=== PATIENT | female | born 1985 | race African-American/Black ===

== ENCOUNTER 2017-10-25 12:30 | Observation (INO) ==
[2017-10-25] MEDS ORDERED: methylPREDNISolone SOD SUC 125 MG/2 ML VIAL IV ONE (13:49)
[2017-10-25] MEDS ORDERED: MULTIVITAMIN INJ 10 ML in SODIUM CHLORIDE 0.9% 1,000 ML IV SCH (14:00)
[2017-10-25] MEDS: DEXTROSE 5% LACTATED RINGERS 1,000 ML IV SCH ×2 (14:05→23:51)
[2017-10-25 14:25] LABS: Basophils % 0.3 % (0.0-0.8); Eosinophils % 0.2 % (0.00-10.9); Hematocrit 33.8 VOL% (35.7-47.0); Immature Granulocytes % 0.5 %; Immature Granulocytes Absolute 0.05 #; Lymphocytes # 1.7 10*3/uL (1.4-4.0); Lymphocytes % 15.7 % (21.3-54.2); Mean Corpuscular HGB Conc 32.5 GM/DL (32-36); Mean Corpuscular Hemoglobin 26 PG (27-34); Mean Corpuscular Volume 81.1 FL (87-102); Monocytes # 0.8 10*3/uL (0.11-0.8); Monocytes % 7.6 % (1.7-12.7); Neutrophils % 75.7 % (38.7-73.9); Platelet Count 268 T/CUMM (130-400); Red Blood Count 4.17 MC/CUMM (3.8-5.5); Red Cell Distribution Width 15.8 % (9.3-17.3); White Blood Count 10.6 T/CUMM (4-12)
[2017-10-25 14:34] LABS: Apearance,Urine Slightly Hazy (Clear); Bacteria,Urine Occasional /HPF (Few); Bilirubin,Urine Negative (Negative); Blood, Urine Small mg/dL (Negative); Glucose,Urine (UA) Negative (Negative); Ketones,Urine 20 mg/dL (Negative); Mucus,Urine Many /LPF (Occasional); Nitrite,Urine Negative (Negative); Protein,Urine 100 MG/DL; RBC,Urine 7 /HPF (0-4); Squamous Epithelial Cell,Urine Occasional /HPF (0-10); Urine Color Yellow (Yellow); Urine Specific Gravity 1.023 (1.001-1.035); WBC,Urine 2 /HPF (0-6)
[2017-10-25 14:49] LABS: Albumin 4.1 G/DL (3.4-5.0); Bilirubin,Total 0.6 MG/DL (0.2-1.0); Calcium 9.2 MG/DL (8.5-10.1); Osmolality,Calculated 270.1 MOS/KG (273-304); Potassium 3.4 MMOL/L (3.5-5.1); Total Protein 8.1 G/DL (6.4-8.3)
[2017-10-25] MEDS: ONDANSETRON ODT 4 MG TABLET PO SCH ×2 (15:35→19:23)
[2017-10-25] MEDS: PROMETHAZINE 25 MG/1 ML VIAL IM PRN (20:52)
[2017-10-26] MEDS: ONDANSETRON ODT 4 MG TABLET PO SCH ×4 (01:55→20:58)
[2017-10-26] MEDS: PROMETHAZINE 25 MG/1 ML VIAL IM PRN (06:58)
[2017-10-26] MEDS ORDERED: PROMETHAZINE 25 MG TABLET PO PRN (09:03)
[2017-10-26] MEDS ORDERED: METOCLOPRAMIDE 10 MG/2 ML VIAL IV SCH (12:00)
[2017-10-26] MEDS: DEXTROSE 5% LACTATED RINGERS 1,000 ML IV SCH ×2 (12:17→20:59)
[2017-10-26] MEDS: METOCLOPRAMIDE 10 MG/2 ML VIAL IV SCH (17:47)
[2017-10-26] MEDS ORDERED: DOCUSATE SODIUM 100 MG CAPSULE PO PRN (19:19)
[2017-10-27] MEDS: ONDANSETRON ODT 4 MG TABLET PO SCH ×2 (02:03→07:55)
[2017-10-27] MEDS ORDERED: ALUMINUM/MAGNES/SIMETH MAX STR 30 ML UDCUP PO PRN (03:24)
[2017-10-27] MEDS: DEXTROSE 5% LACTATED RINGERS 1,000 ML IV SCH (07:09)
[2017-10-27 07:23] VITALS: BP 117/69
[2017-10-27] MEDS: METOCLOPRAMIDE 10 MG/2 ML VIAL IV SCH (07:55)
== END 2017-10-27 09:15 | disposition home or self-care (01) ==
LOC: INTOOBSV 13:15 → N.OB 13:15
PROVIDERS: ADMIT Obstetrics & Gynecology; ATTEND Obstetrics & Gynecology

== ENCOUNTER 2018-06-08 14:46 | Inpatient (IN) ==
[2018-06-08] MEDS ORDERED: LACTATED RINGERS 500 ML IV PRN (15:14)
[2018-06-08] MEDS ORDERED: LACTATED RINGERS 250 ML IV ONE (15:14)
[2018-06-08] MEDS ORDERED: ONDANSETRON 4 MG/2 ML VIAL IV PRN ×2 (15:14→20:03)
[2018-06-08] MEDS ORDERED: ceFAZolin 2,000 MG in PREMIX 1 EACH IV ONE (15:18)
[2018-06-08] MEDS ORDERED: FAMOTIDINE 20 MG/2 ML VIAL IV ONE (15:18)
[2018-06-08] MEDS ORDERED: CITRIC ACID/SODIUM CITRATE 30 ML UDCUP PO ONE (15:18)
[2018-06-08] MEDS ORDERED: OXYTOCIN/LR 20 UNIT/1,000 ML BAG IV ONE ×2 (15:21→20:03)
[2018-06-08] MEDS: LACTATED RINGERS 1,000 ML IV SCH ×3 (15:38→19:48)
[2018-06-08 16:08] LABS: Basophils # 0.1 10*3/uL (0.0-0.2); Basophils % 0.4 % (0.0-0.8); Eosinophils # 0.1 10*3/uL (0.0-0.87); Eosinophils % 0.6 % (0.00-10.9); Hematocrit 32.5 VOL% (35.7-47.0); Hemoglobin 10.1 GM/DL (12.0-16.0); Immature Granulocytes % 1.5 %; Immature Granulocytes Absolute 0.18 #; Lymphocytes # 2.1 10*3/uL (1.4-4.0); Lymphocytes % 17.2 % (21.3-54.2); Mean Corpuscular HGB Conc 31.1 GM/DL (32-36); Mean Corpuscular Hemoglobin 28 PG (27-34); Monocytes # 0.9 10*3/uL (0.11-0.8); Monocytes % 7.5 % (1.7-12.7); Neutrophils # 8.7 10*3/uL (1.4-7.4); Neutrophils % 72.8 % (38.7-73.9); Platelet Count 135 T/CUMM (130-400); Red Blood Count 3.57 MC/CUMM (3.8-5.5); Red Cell Distribution Width 17.3 % (9.3-17.3)
[2018-06-08 16:36] LABS: Alanine Aminotransferase 21 U/L (13-56); Albumin 2.6 G/DL (3.4-5.0); Alkaline Phosphatase 175 U/L (45-117); Aspartate Amino Transferase 29 U/L (0-37); Bilirubin,Total < 0.39 MG/DL (0.2-1.0); Blood Urea Nitrogen 6 MG/DL (7-18); Calcium 8.2 MG/DL (8.5-10.1); Glucose 71 MG/DL (74-106); Osmolality,Calculated 270.7 MOS/KG (273-304); Sodium 138 MMOL/L (136-145); Total Protein 6.1 G/DL (6.4-8.3)
[2018-06-08] MEDS ORDERED: ACETAMINOPHEN 325 MG TABLET PO PRN (20:03)
[2018-06-08] MEDS ORDERED: BUPIVACAINE SPINAL 0.75% 2 ML AMP SPINAL ONE (20:03)
[2018-06-08] MEDS ORDERED: KETOROLAC 30 MG/1 ML VIAL ONE (20:03)
[2018-06-08] MEDS ORDERED: RHO(D) IMMUNE GLOBULIN 300 MCG SYRINGE IM ONE (20:03)
[2018-06-08] MEDS ORDERED: IBUPROFEN 800 MG TABLET PO PRN (20:03)
[2018-06-08] MEDS ORDERED: fentaNYL 100 MCG/2 ML VIAL ONE (20:03)
[2018-06-08] MEDS ORDERED: PHENYLEPHRINE 1 MG/10 ML SYRINGE IV ONE (20:03)
[2018-06-08] MEDS ORDERED: LACTATED RINGERS 1,000 ML IV ONE (20:03)
[2018-06-08] MEDS ORDERED: ONDANSETRON 4 MG/2 ML VIAL ONE (20:03)
[2018-06-08 20:58] LABS: Apearance,Urine CLEAR (Clear); Bilirubin,Urine Negative (Negative); Blood, Urine Negative (Negative); Glucose,Urine (UA) Negative (Negative); Ketones,Urine 20 mg/dL (Negative); Mucus,Urine Occasional /LPF (Occasional); Nitrite,Urine Negative (Negative); Protein,Urine Negative; RBC,Urine 5 /HPF (0-4); Squamous Epithelial Cell,Urine Occasional /HPF (0-10); Urine Color Yellow (Yellow); Urine Specific Gravity 1.016 (1.001-1.035); Urine Urobilinogen < 2.0 EU/DL (0.2-1.0); WBC,Urine <1 /HPF (0-6)
[2018-06-08] MEDS: oxyCODONE/ACETAMINOPHEN 5-325 MG TABLET PO PRN (21:33)
[2018-06-08] MEDS: DOCUSATE SODIUM 100 MG CAPSULE PO SCH (22:14)
[2018-06-09] MEDS ORDERED: diphenhydrAMINE 50 MG/1 ML VIAL IV PRN (00:18)
[2018-06-09] MEDS: oxyCODONE/ACETAMINOPHEN 5-325 MG TABLET PO PRN ×4 (01:33→21:32)
[2018-06-09] MEDS: ceFAZolin 1,000 MG in SYRINGE 1 EACH IV SCH ×2 (01:40→10:14)
[2018-06-09] MEDS: IBUPROFEN 800 MG TABLET PO PRN ×3 (03:45→18:10)
[2018-06-09] MEDS: LACTATED RINGERS 1,000 ML IV SCH (03:46)
[2018-06-09 05:39] LABS: Basophils # 0.1 10*3/uL (0.0-0.2); Basophils % 0.4 % (0.0-0.8); Eosinophils # 0.1 10*3/uL (0.0-0.87); Eosinophils % 0.6 % (0.00-10.9); Hematocrit 28.8 VOL% (35.7-47.0); Hemoglobin 9.1 GM/DL (12.0-16.0); Immature Granulocytes % 0.6 %; Immature Granulocytes Absolute 0.09 #; Lymphocytes # 2.3 10*3/uL (1.4-4.0); Lymphocytes % 16.4 % (21.3-54.2); Mean Corpuscular HGB Conc 31.6 GM/DL (32-36); Mean Corpuscular Hemoglobin 28 PG (27-34); Mean Corpuscular Volume 89.4 FL (87-102); Mean Platelet Volume 12.2 FL (9.6-12.0); Monocytes # 1.1 10*3/uL (0.11-0.8); Monocytes % 7.4 % (1.7-12.7); Neutrophils # 10.6 10*3/uL (1.4-7.4); Neutrophils % 74.6 % (38.7-73.9); Platelet Count 133 T/CUMM (130-400); Red Blood Count 3.22 MC/CUMM (3.8-5.5); Red Cell Distribution Width 17.1 % (9.3-17.3); White Blood Count 14.2 T/CUMM (4-12)
[2018-06-09] MEDS: DOCUSATE SODIUM 100 MG CAPSULE PO SCH ×3 (10:23→21:31)
[2018-06-09] MEDS: MAGNESIUM HYDROXIDE SUSP 30 ML UDCUP PO PRN (10:23)
[2018-06-09] MEDS: MULTIVITAMIN (PRENATAL) TABLET PO SCH (10:23)
[2018-06-09] MEDS: SIMETHICONE CHEW 80 MG TABLET PO PRN ×2 (10:23→19:53)
[2018-06-09 11:50] LABS: Basophils % 0.2 % (0.0-0.8); Eosinophils # 0.1 10*3/uL (0.0-0.87); Eosinophils % 0.5 % (0.00-10.9); Hematocrit 27.7 VOL% (35.7-47.0); Hemoglobin 8.8 GM/DL (12.0-16.0); Immature Granulocytes % 0.6 %; Immature Granulocytes Absolute 0.08 #; Lymphocytes # 1.6 10*3/uL (1.4-4.0); Lymphocytes % 12.2 % (21.3-54.2); Mean Corpuscular HGB Conc 31.8 GM/DL (32-36); Mean Corpuscular Hemoglobin 29 PG (27-34); Mean Corpuscular Volume 90.8 FL (87-102); Mean Platelet Volume 11.2 FL (9.6-12.0); Monocytes % 7.6 % (1.7-12.7); Neutrophils % 78.9 % (38.7-73.9); Platelet Count 135 T/CUMM (130-400); Red Blood Count 3.05 MC/CUMM (3.8-5.5); Red Cell Distribution Width 17.2 % (9.3-17.3); White Blood Count 12.7 T/CUMM (4-12)
[2018-06-09] MEDS: valACYclovir 500 MG TABLET PO SCH (15:11)
[2018-06-09] MEDS ORDERED: BISACODYL 10 MG SUPP RECTAL PRN (19:36)
[2018-06-09] MEDS: diphenhydrAMINE CAP 25 MG CAPSULE PO PRN (21:31)
[2018-06-10] MEDS: IBUPROFEN 800 MG TABLET PO PRN ×4 (01:46→21:37)
[2018-06-10] MEDS: oxyCODONE/ACETAMINOPHEN 5-325 MG TABLET PO PRN ×3 (04:38→19:15)
[2018-06-10] MEDS: diphenhydrAMINE CAP 25 MG CAPSULE PO PRN (04:57)
[2018-06-10] MEDS: MULTIVITAMIN (PRENATAL) TABLET PO SCH (09:28)
[2018-06-10] MEDS: valACYclovir 500 MG TABLET PO SCH ×2 (09:28→10:50)
[2018-06-10] MEDS: DOCUSATE SODIUM 100 MG CAPSULE PO SCH ×2 (09:29→21:36)
[2018-06-10] MEDS ORDERED: DIPH/TET/ACEL PERT BOOSTER VACCINE 0.5 ML VIAL IM ONE (09:30)
[2018-06-10] MEDS: LACTATED RINGERS 1,000 ML IV SCH ×6 (21:21→21:27)
[2018-06-11] MEDS: oxyCODONE/ACETAMINOPHEN 5-325 MG TABLET PO PRN ×2 (04:35→10:33)
[2018-06-11] MEDS: LACTATED RINGERS 1,000 ML IV SCH ×3 (04:36→04:37)
[2018-06-11 07:41] VITALS: BP 131/85
[2018-06-11] MEDS: DOCUSATE SODIUM 100 MG CAPSULE PO SCH (08:01)
[2018-06-11] MEDS: valACYclovir 500 MG TABLET PO SCH (08:01)
[2018-06-11] MEDS: MULTIVITAMIN (PRENATAL) TABLET PO SCH (08:01)
[2018-06-11] MEDS: MAGNESIUM HYDROXIDE SUSP 30 ML UDCUP PO PRN (08:01)
[2018-06-11] MEDS: IBUPROFEN 800 MG TABLET PO PRN (08:02)
== END 2018-06-11 12:05 | disposition home or self-care (01) | DRG 540 ==
LOC: N.LDOUT 14:46 → N.LD 14:51 → N.OB 06-09 00:07
PROVIDERS: ADMIT Obstetrics & Gynecology; ATTEND Obstetrics & Gynecology
PROC: LDCSECT (ICD-10-PCS; 2018-06-08 17:30)